=== PATIENT | female | born 1950 | race Caucasian/White ===

== ENCOUNTER 2024-01-18 15:18 | Inpatient (IN) | payer OTHER, MEDICARE ==
[2024-01-18] MEDS ORDERED: NOREPINEPHRINE 0.9 % NACL 8 MG/250 ML BAG IVPB ONE (15:34)
[2024-01-18 15:45] LABS: VENOUS BASE EXCESS -9.3 mmol/L (-2-2); VENOUS O2 SATURATION 94.6 % (70-80); VENOUS PCO2 56.2 mmHg (38-52)
[2024-01-18 15:48] LABS: VENOUS PH 7.159 (7.310-7.410)
[2024-01-18 15:51] LABS: HEMATOCRIT 32.5 % (32.4-45.2); HEMOGLOBIN 9.9 GM/dL (10.7-15.3); MCH 23.5 pg (25.7-33.7); MCHC 30.4 g/dl (32.0-36.0); MEAN CELL VOLUME 77.4 fl (80-96); MEAN PLT VOLUME 9.5 fl (7.5-11.1); PLATELET COUNT 247 10^3/uL (134-434); RDW 16.5 % (11.6-15.6); WHITE BLOOD COUNT 22.4 K/mm3 (4.0-10.0)
[2024-01-18] MEDS: NOREPINEPHRINE BITARTRATE 8,000 MCG in DEXTROSE 5%-WATER - 492 ML IV SCH (16:02)
[2024-01-18 16:04] LABS: CHLORIDE 102 mmol/L (98-107); SODIUM 138 mmol/L (136-145)
[2024-01-18 16:05] LABS: CALCIUM 8.9 mg/dL (8.5-10.1)
[2024-01-18 16:06] LABS: ALBUMIN 2.8 g/dl (3.4-5.0); CO2 21 mmol/L (21-32); GLUCOSE,RANDOM 331 mg/dL (74-106); MAGNESIUM 2.5 mg/dL (1.8-2.4)
[2024-01-18 16:09] LABS: CREATININE 3.7 mg/dL (0.55-1.3); SGOT/AST 86 U/L (15-37); SGPT/ALT 55 U/L (13-61)
[2024-01-18 16:11] LABS: ALK PHOS 90 U/L (45-117); BILIRUBIN,TOTAL 0.6 mg/dL (0.2-1); TOT PROT 5.8 g/dl (6.4-8.2)
[2024-01-18 16:14] LABS: ANION GAP 15 mmol/L (4-13); N-TERMINAL BNP 5930.9 pg/ml (5-450); POTASSIUM 8.1 mmol/L (3.5-5.1)
[2024-01-18 16:15] LABS: LACTIC ACID 9.5 mmol/L (0.4-2.0)
[2024-01-18] MEDS ORDERED: INSULIN REGULAR HUMAN 100 UNITS/ML *VIAL ONE (16:25)
[2024-01-18] MEDS ORDERED: ALBUTEROL SO4 2.5/IPRATROPIUM 0.5 INH SOL 3 ML VIAL.NEB. NEB ONE ×2 (16:25→18:45)
[2024-01-18 16:45] LABS: ACTIVATED PTT 28.7 SECONDS (25.2-36.5); INR 1.05 (0.83-1.09); PROTHROMBIN TIME (PATIENT) 11.9 SEC (9.7-13.0)
[2024-01-18] MEDS ORDERED: INSULIN REGULAR HUMAN 100 UNITS/ML *VIAL IVPUSH ONE (16:53)
[2024-01-18 17:13] LABS: ANISOCYTOSIS 2+; MACROCYTOSIS 0
[2024-01-18] MEDS: ALBUTEROL SO4 2.5/IPRATROPIUM 0.5 INH SOL 3 ML VIAL.NEB. NEB SCH ×3 (17:14→20:49)
[2024-01-18] MEDS ORDERED: PIPERACILLIN/TAZOB 4.5 GM 4.5 GM/100 ML BAG IVPB ONE (17:18)
[2024-01-18] MEDS ORDERED: VANCOMYCIN 1 GRAM (PRE-DOCKED) 1,000 MG/250 ML BAG IVPB ONE (17:19)
[2024-01-18] MEDS: SODIUM CHLORIDE 0.9% 1000 ML INFUS.BAG IV ONE (17:25)
[2024-01-18 17:45] LABS: CHLORIDE 102 mmol/L (98-107); SODIUM 139 mmol/L (136-145)
[2024-01-18 17:47] LABS: ALBUMIN 2.8 g/dl (3.4-5.0); BLOOD UREA NITROGEN 78.6 mg/dL (7-18); CALCIUM 9.8 mg/dL (8.5-10.1); CO2 25 mmol/L (21-32); GLUCOSE,RANDOM 327 mg/dL (74-106)
[2024-01-18 17:50] LABS: SGOT/AST 208 U/L (15-37); SGPT/ALT 119 U/L (13-61)
[2024-01-18 17:51] LABS: BILIRUBIN,TOTAL 0.7 mg/dL (0.2-1); CREATININE 3.8 mg/dL (0.55-1.3); TOT PROT 5.7 g/dl (6.4-8.2)
[2024-01-18 17:54] LABS: ALK PHOS 101 U/L (45-117)
[2024-01-18] MEDS: methylPREDNISolone NA SUCC 40 MG/1 ML VIAL IVPUSH SCH (18:00)
[2024-01-18] MEDS: PIPERACILLIN/TAZOB 4.5 GM 4.5 GM in DEXTROSE 5%-WATER 100 ML IVPB ONE (18:06)
[2024-01-18] MEDS: VANCOMYCIN 1,000 MG in DEXTROSE 5%-WATER - 250 ML IVPB ONE (18:06)
[2024-01-18 18:08] LABS: ANION GAP 12 mmol/L (4-13); POTASSIUM 8.9 mmol/L (3.5-5.1)
[2024-01-18] MEDS: SODIUM CHLORIDE 1,000 ML IV SCH (18:08)
[2024-01-18] MEDS: CALCIUM GLUCONATE 10% - 1,000 MG/10 ML VIAL IVPUSH ONE ×2 (18:08→18:42)
[2024-01-18] MEDS: INSULIN REGULAR HUMAN 100 UNITS/ML *VIAL IVPUSH ONE ×3 (18:08→22:31)
[2024-01-18] MEDS: LACTATED RINGERS SOLUTION 1000 ML INFUS.BAG IV ONE (18:42)
[2024-01-18] MEDS ORDERED: PANTOPRAZOLE SODIUM 40 MG/100 ML BAG IVPB ONE (19:14)
[2024-01-18] MEDS: PANTOPRAZOLE SODIUM 40 MG VIAL IVPUSH SCH (19:25)
[2024-01-18] MEDS: SODIUM BICARBONATE 8.4% - 75 MEQ in SODIUM CHLORIDE 0.45% 950 ML IV ONE (19:44)
[2024-01-18 19:48] LABS: EPI CELLS >36 /uL (0-25.1); HYALINE CASTS 177 /uL (0-3.1); PH,URINE 5.5 (5.0-8.0); URINE APPEARANCE TURBID; URINE BACTERIA 6109 /uL (0-1359); URINE BILIRUBIN NEGATIVE (NEGATIVE); URINE COLOR YELLOW; URINE GLUCOSE (UA) TRACE (NEGATIVE); URINE KETONE NEGATIVE (NEGATIVE); URINE LEUK ESTERASE 3+ (NEGATIVE); URINE NITRITE POSITIVE (NEGATIVE); URINE PROTEIN 2+ (NEGATIVE); URINE UROBILINOGEN 0.2 mg/dL (0.2-1.0); URINE WBC 39799 /uL (0-25.8)
[2024-01-18 20:32] LABS: URINE RBC NONE SEEN /uL (0-23.9); YEAST NONE SEEN (NEGATIVE)
[2024-01-18] MEDS: CHLORHEXIDINE GLUCONATE 4% CLEANSER FOR DECOLONIZATION TP SCH (21:22)
[2024-01-18] MEDS: HEPARIN NA (PORCINE) 5,000 UNITS/ML 1ML VIAL SQ SCH (22:20)
[2024-01-18] MEDS: MUPIROCIN 2% TOPICAL OINTMENT FOR DECOLONIZATION NS SCH (22:20)
[2024-01-18] MEDS: INSULIN ASPART SLIDING SCALE (NOVOLOG) 1 VIAL SQ SCH (22:21)
[2024-01-18] MEDS: PIPERACILLIN/TAZOB 3.375 GM 3.375 GM in DEXTROSE 5%-WATER - 50 ML IVPB SCH (22:21)
[2024-01-18] MEDS ORDERED: INSULIN ASPART SLIDING SCALE (NOVOLOG) 1 VIAL SQ ONE (22:26)
[2024-01-18] MEDS: SODIUM BICARBONATE 8.4% 50 MEQ/50 ML DISP.SYRIN IVPUSH ONE (22:27)
[2024-01-18] MEDS ORDERED: DEXTROSE 50%-WATER 25 GM/50 ML DISP.SYRIN ONE (22:29)
[2024-01-18] MEDS: DEXTROSE 50%-WATER - 25 GM/50 ML VIAL IVPUSH ONE (22:37)
[2024-01-18 23:09] LABS: HEMATOCRIT 32.2 % (32.4-45.2); HEMOGLOBIN 10.1 GM/dL (10.7-15.3); MCH 23.6 pg (25.7-33.7); MCHC 31.4 g/dl (32.0-36.0); MEAN CELL VOLUME 75.2 fl (80-96); MEAN PLT VOLUME 9.1 fl (7.5-11.1); PLATELET COUNT 260 10^3/uL (134-434); RBC 4.28 M/mm3 (3.60-5.2); RDW 16.4 % (11.6-15.6); WHITE BLOOD COUNT 23.7 K/mm3 (4.0-10.0)
[2024-01-18 23:13] LABS: ARTERIAL BLD GAS O2 SATURATION 97.4 % (95-98); ARTERIAL BLOOD GAS BASE EXCESS -1.3 mmol/L (-2-2); ARTERIAL BLOOD GAS PO2 102.3 mmHg (80-100); ARTERIAL BLOOD GAS pH 7.346 (7.350-7.450)
[2024-01-18 23:16] LABS: INR 1.16 (0.83-1.09)
[2024-01-18 23:17] LABS: VENT RATE 14
[2024-01-18 23:31] LABS: ALBUMIN 2.7 g/dl (3.4-5.0)
[2024-01-18 23:33] LABS: BILIRUBIN,DIRECT 0.2 mg/dL (0.0-0.2)
[2024-01-18 23:35] LABS: BILIRUBIN,TOTAL 0.6 mg/dL (0.2-1); TOT PROT 5.4 g/dl (6.4-8.2)
[2024-01-19 00:37] LABS: CHLORIDE 103 mmol/L (98-107); SODIUM 139 mmol/L (136-145)
[2024-01-19 00:39] LABS: CALCIUM 9.1 mg/dL (8.5-10.1); CO2 27 mmol/L (21-32)
[2024-01-19 00:40] LABS: BLOOD UREA NITROGEN 83.4 mg/dL (7-18)
[2024-01-19 00:43] LABS: CREATININE 3.6 mg/dL (0.55-1.3)
[2024-01-19 00:46] LABS: ANION GAP 9 mmol/L (4-13); GLUCOSE,RANDOM 413 mg/dL (74-106); POTASSIUM 7.2 mmol/L (3.5-5.1)
[2024-01-19 06:33] LABS: ARTERIAL BLD GAS O2 SATURATION 97.9 % (95-98); ARTERIAL BLOOD GAS BASE EXCESS 3.7 mmol/L (-2-2); ARTERIAL BLOOD GAS PO2 104.9 mmHg (80-100); ARTERIAL BLOOD GAS pH 7.429 (7.350-7.450)
[2024-01-19 06:50] LABS: HEMATOCRIT 33.6 % (32.4-45.2); HEMOGLOBIN 10.4 GM/dL (10.7-15.3); MCH 23.3 pg (25.7-33.7); MCHC 31.1 g/dl (32.0-36.0); MEAN PLT VOLUME 9.1 fl (7.5-11.1); PLATELET COUNT 235 10^3/uL (134-434); RBC 4.48 M/mm3 (3.60-5.2); RDW 15.9 % (11.6-15.6); WHITE BLOOD COUNT 26.2 K/mm3 (4.0-10.0)
[2024-01-19 06:53] LABS: CHLORIDE 104 mmol/L (98-107); SODIUM 140 mmol/L (136-145)
[2024-01-19 06:57] LABS: ALBUMIN 2.7 g/dl (3.4-5.0); CO2 28 mmol/L (21-32); GLUCOSE,RANDOM 309 mg/dL (74-106); MAGNESIUM 2.2 mg/dL (1.8-2.4)
[2024-01-19 07:00] LABS: CREATININE 3.5 mg/dL (0.55-1.3); PHOSPHOROUS 5.3 mg/dL (2.5-4.9); SGOT/AST 153 U/L (15-37); SGPT/ALT 107 U/L (13-61)
[2024-01-19 07:03] LABS: ALK PHOS 93 U/L (45-117); BILIRUBIN,TOTAL 0.5 mg/dL (0.2-1); TOT PROT 5.5 g/dl (6.4-8.2)
[2024-01-19 07:11] LABS: ANION GAP 8 mmol/L (4-13); POTASSIUM 7.2 mmol/L (3.5-5.1)
[2024-01-19] MEDS: INSULIN REGULAR HUMAN 100 UNITS/ML *VIAL IVPUSH ONE ×2 (07:56→21:55)
[2024-01-19] MEDS: SODIUM CHLORIDE 1,000 ML IV SCH (08:33)
[2024-01-19] MEDS: INSULIN REGULAR 100 UNITS in SODIUM CHLORIDE 99 ML IVPB SCH ×2 (08:56→09:40)
[2024-01-19] MEDS: SODIUM ZIRCONIUM CYCLOSILICATE (LOKELMA) 5 GM PACKET PO SCH ×2 (09:09→21:55)
[2024-01-19 09:19] LABS: ANISOCYTOSIS 2+; MACROCYTOSIS 0
[2024-01-19 09:21] LABS: PLATELET ESTIMATE ADEQUATE
[2024-01-19 09:23] LABS: LACTIC ACID 3.9 mmol/L (0.4-2.0)
[2024-01-19] MEDS: METOPROLOL TARTRATE 5 MG/5 ML VIAL IVPUSH PRN ×2 (12:11→17:12)
[2024-01-19] MEDS: PIPERACILLIN/TAZOB 2.25 GM 2.25 GM in DEXTROSE 5%-WATER - 50 ML IVPB SCH (13:31)
[2024-01-19] MEDS: METOPROLOL TARTRATE 5 MG/5 ML VIAL IVPUSH ONE (14:35)
[2024-01-19 14:59] LABS: POTASSIUM 6.5 mmol/L (3.5-5.1)
[2024-01-19 15:08] LABS: LACTIC ACID 2.6 mmol/L (0.4-2.0)
[2024-01-19 21:30] LABS: POTASSIUM 6.8 mmol/L (3.5-5.1)
[2024-01-19] MEDS: DEXTROSE 50%-WATER 25 GM/50 ML DISP.SYRIN IVPUSH ONE (21:55)
[2024-01-20] MEDS ORDERED: INSULIN ASPART SLIDING SCALE (NOVOLOG) 1 VIAL SQ ONE (03:04)
[2024-01-20] MEDS: PIPERACILLIN/TAZOB 3.375 GM 3.375 GM in DEXTROSE 5%-WATER - 50 ML IVPB SCH (05:03)
[2024-01-20 07:18] LABS: HEMATOCRIT 33.4 % (32.4-45.2); HEMOGLOBIN 10.5 GM/dL (10.7-15.3); MCH 23.4 pg (25.7-33.7); MCHC 31.4 g/dl (32.0-36.0); MEAN CELL VOLUME 74.7 fl (80-96); PLATELET COUNT 244 10^3/uL (134-434); RBC 4.47 M/mm3 (3.60-5.2); RDW 15.9 % (11.6-15.6)
[2024-01-20 07:29] LABS: CHLORIDE 104 mmol/L (98-107); SODIUM 141 mmol/L (136-145)
[2024-01-20 07:32] LABS: CALCIUM 8.5 mg/dL (8.5-10.1)
[2024-01-20 07:33] LABS: ALBUMIN 2.6 g/dl (3.4-5.0); BLOOD UREA NITROGEN 79.4 mg/dL (7-18); CO2 26 mmol/L (21-32); GLUCOSE,RANDOM 242 mg/dL (74-106)
[2024-01-20 07:36] LABS: CREATININE 3.6 mg/dL (0.55-1.3); SGOT/AST 159 U/L (15-37); SGPT/ALT 83 U/L (13-61)
[2024-01-20 07:37] LABS: BILIRUBIN,TOTAL 0.4 mg/dL (0.2-1); TOT PROT 5.4 g/dl (6.4-8.2)
[2024-01-20 07:38] LABS: ALK PHOS 86 U/L (45-117)
[2024-01-20 07:39] LABS: PHOSPHOROUS 5.4 mg/dL (2.5-4.9)
[2024-01-20 07:40] LABS: ANION GAP 11 mmol/L (4-13); POTASSIUM 6.2 mmol/L (3.5-5.1)
[2024-01-20 08:00] LABS: WHITE BLOOD COUNT 32.2 K/mm3 (4.0-10.0)
[2024-01-20] MEDS: DEXTROSE 50%-WATER 25 GM/50 ML DISP.SYRIN IVPUSH ONE (08:51)
[2024-01-20] MEDS: INSULIN REGULAR HUMAN 100 UNITS/ML *VIAL IVPUSH ONE (08:52)
[2024-01-20 09:07] LABS: ANISOCYTOSIS 0; MACROCYTOSIS 0
[2024-01-20] MEDS: METOPROLOL TARTRATE 25 MG TABLET (FP) PO SCH (09:12)
[2024-01-20] MEDS: POLYETHYLENE GLYCOL (HEALTHYLAX) 3350 17 GM PACKET PO SCH (09:13)
[2024-01-20] MEDS: INSULIN ASPART SLIDING SCALE (NOVOLOG) 1 VIAL SQ SCH (12:15)
[2024-01-20] MEDS ORDERED: INSULIN REGULAR 100 UNITS in SODIUM CHLORIDE 99 ML IVPB SCH (12:30)
[2024-01-20] MEDS: SODIUM CHLORIDE 0.45% 1,000 ML IV SCH (15:35)
[2024-01-20 20:16] LABS: POTASSIUM 5.2 mmol/L (3.5-5.1)
[2024-01-20 20:17] LABS: CALCIUM 8.6 mg/dL (8.5-10.1)
[2024-01-20 20:18] LABS: BLOOD UREA NITROGEN 82.7 mg/dL (7-18)
[2024-01-20 20:21] LABS: CREATININE 3.8 mg/dL (0.55-1.3)
[2024-01-20] MEDS: SENNOSIDES 8.6MG TABLET (FP) PO SCH (21:18)
[2024-01-21 08:05] LABS: BASO % 0.1 % (0-2.0); HEMATOCRIT 29.5 % (32.4-45.2); HEMOGLOBIN 9.6 GM/dL (10.7-15.3); LYMPH % 1.4 % (8-40); MCH 23.7 pg (25.7-33.7); MCHC 32.5 g/dl (32.0-36.0); MEAN CELL VOLUME 73.1 fl (80-96); MEAN PLT VOLUME 8.7 fl (7.5-11.1); MONO % 4.6 % (3.8-10.2); NEUT % 93.9 % (42.8-82.8); PLATELET COUNT 188 10^3/uL (134-434); RBC 4.03 M/mm3 (3.60-5.2); RDW 16.1 % (11.6-15.6); WHITE BLOOD COUNT 28.2 K/mm3 (4.0-10.0)
[2024-01-21 08:15] LABS: ALBUMIN 2.3 g/dl (3.4-5.0); BLOOD UREA NITROGEN 80.9 mg/dL (7-18); CALCIUM 8.1 mg/dL (8.5-10.1); MAGNESIUM 1.9 mg/dL (1.8-2.4)
[2024-01-21 08:18] LABS: CREATININE 3.5 mg/dL (0.55-1.3); PHOSPHOROUS 5.2 mg/dL (2.5-4.9)
[2024-01-21 08:19] LABS: BILIRUBIN,TOTAL 0.3 mg/dL (0.2-1)
[2024-01-21 08:47] LABS: ANISOCYTOSIS 2+; MACROCYTOSIS 0; TEAR DROP CELLS 1+
[2024-01-21] MEDS: NOREPINEPHRINE BITARTRATE/D5W 8 MG/250 ML BAG IVPB SCH (11:32)
[2024-01-21] MEDS: ALBUMIN HUMAN 25% 100 ML VIAL IV ONE (12:14)
[2024-01-22 12:01] LABS: ARTERIAL BLD GAS O2 SATURATION 97.3 % (95-98); ARTERIAL BLOOD GAS BASE EXCESS -0.6 mmol/L (-2-2); ARTERIAL BLOOD GAS PO2 97.6 mmHg (80-100); ARTERIAL BLOOD GAS pH 7.379 (7.350-7.450)
[2024-01-22 12:06] LABS: VENT MODE A/C; VENT RATE 14
[2024-01-22 12:12] LABS: HEMATOCRIT 27.3 % (32.4-45.2); HEMOGLOBIN 8.7 GM/dL (10.7-15.3); MCH 23.5 pg (25.7-33.7); MCHC 31.8 g/dl (32.0-36.0); MEAN CELL VOLUME 73.8 fl (80-96); MEAN PLT VOLUME 8.3 fl (7.5-11.1); PLATELET COUNT 161 10^3/uL (134-434); RDW 16.4 % (11.6-15.6); WHITE BLOOD COUNT 25.3 K/mm3 (4.0-10.0)
[2024-01-22 12:29] LABS: POTASSIUM 4.3 mmol/L (3.5-5.1)
[2024-01-22 12:31] LABS: ALBUMIN 2.3 g/dl (3.4-5.0); BLOOD UREA NITROGEN 77.8 mg/dL (7-18); CALCIUM 8.3 mg/dL (8.5-10.1); MAGNESIUM 2.1 mg/dL (1.8-2.4)
[2024-01-22 12:34] LABS: CREATININE 3.4 mg/dL (0.55-1.3)
[2024-01-22 12:35] LABS: PHOSPHOROUS 5.5 mg/dL (2.5-4.9)
[2024-01-22 12:36] LABS: BILIRUBIN,TOTAL 0.3 mg/dL (0.2-1); TOT PROT 4.9 g/dl (6.4-8.2)
[2024-01-22 12:54] LABS: ANISOCYTOSIS 1+; MACROCYTOSIS 0
[2024-01-23] MEDS: INSULIN ASPART SLIDING SCALE (NOVOLOG) 1 VIAL SQ SCH ×2 (06:35→11:17)
[2024-01-23 07:21] LABS: HEMATOCRIT 30.6 % (32.4-45.2); HEMOGLOBIN 9.2 GM/dL (10.7-15.3); MCH 23.1 pg (25.7-33.7); MCHC 30.2 g/dl (32.0-36.0); MEAN CELL VOLUME 76.5 fl (80-96); MEAN PLT VOLUME 8.5 fl (7.5-11.1); PLATELET COUNT 237 10^3/uL (134-434); RDW 16.9 % (11.6-15.6)
[2024-01-23 07:32] LABS: WHITE BLOOD COUNT 35.4 K/mm3 (4.0-10.0)
[2024-01-23 07:57] LABS: POTASSIUM 4.3 mmol/L (3.5-5.1)
[2024-01-23 07:59] LABS: CALCIUM 8.7 mg/dL (8.5-10.1); MAGNESIUM 2.2 mg/dL (1.8-2.4)
[2024-01-23 08:03] LABS: CREATININE 3.3 mg/dL (0.55-1.3); PHOSPHOROUS 6.3 mg/dL (2.5-4.9)
[2024-01-23 11:04] LABS: ARTERIAL BLD GAS O2 SATURATION 99.5 % (95-98); ARTERIAL BLOOD GAS BASE EXCESS -7.7 mmol/L (-2-2); ARTERIAL BLOOD GAS PO2 272.4 mmHg (80-100)
[2024-01-23 11:06] LABS: ALLENS TEST POSITIVE
[2024-01-23 11:07] LABS: VENT MODE A/C
[2024-01-23 11:08] LABS: VENT RATE 14
[2024-01-23] MEDS: INSULIN (NOVOLOG) ASPART 100 UNITS/ML 10ML VIAL SQ SCH (11:18)
[2024-01-23 13:12] LABS: ARTERIAL BLD GAS O2 SATURATION 99.1 % (95-98); ARTERIAL BLOOD GAS BASE EXCESS -7.4 mmol/L (-2-2); ARTERIAL BLOOD GAS pH 7.286 (7.350-7.450)
[2024-01-23 13:14] LABS: VENT RATE 20
[2024-01-23] MEDS ORDERED: METOPROLOL TARTRATE 5 MG/5 ML VIAL ONE (15:28)
[2024-01-23] MEDS ORDERED: ADENOSINE 6 MG/2 ML VIAL IVPUSH ONE ×2 (15:30→15:36)
[2024-01-23 15:43] VITALS: BMI 43.7
[2024-01-23] MEDS: SODIUM BICARBONATE 8.4% - 150 MEQ in DEXTROSE 5%-WATER - 950 ML IV SCH (15:43)
[2024-01-23] MEDS: ADENOSINE 6 MG/2 ML VIAL IVPUSH ONE (16:10)
[2024-01-23] MEDS ORDERED: AMIODARONE IN DEXTROSE,ISO-OSM 150 MG/100 ML BAG ONE (18:44)
[2024-01-23] MEDS ORDERED: AMIODARONE HCL 150 MG/3 ML VIAL IVPUSH ONE (18:50)
[2024-01-23] MEDS: AMIODARONE HCL INJECTION 150 MG in DEXTROSE 5%-WATER - 100 ML IVPB ONE (19:02)
[2024-01-23] MEDS: AMIODARONE IN DEXTROSE,ISO-OSM 360 MG/200 ML BAG IV SCH (19:15)
[2024-01-23] MEDS ORDERED: VASopressin 20 UNITS/ML VIAL IV ONE (19:16)
[2024-01-23] MEDS: VASopressin 40 UNITS/100 ML BAG IV SCH (19:30)
[2024-01-23 20:10] VITALS: RESP 20
[2024-01-23] MEDS: INSULIN (LEVEMIR) 100 UNITS/ML UNITS SQ SCH (21:33)
[2024-01-24] MEDS: AMIODARONE IN DEXTROSE,ISO-OSM 360 MG/200 ML BAG IV SCH (00:26)
[2024-01-24 06:48] LABS: ARTERIAL BLD GAS O2 SATURATION 93.7 % (95-98); ARTERIAL BLOOD GAS BASE EXCESS -8.2 mmol/L (-2-2); ARTERIAL BLOOD GAS PO2 79.6 mmHg (80-100); ARTERIAL BLOOD GAS pH 7.241 (7.350-7.450)
[2024-01-24 07:07] LABS: VENT MODE A/C; VENT RATE 20
[2024-01-24 07:32] LABS: HEMATOCRIT 29.7 % (32.4-45.2); HEMOGLOBIN 9.1 GM/dL (10.7-15.3); MCH 23.6 pg (25.7-33.7); MCHC 30.5 g/dl (32.0-36.0); MEAN CELL VOLUME 77.4 fl (80-96); MEAN PLT VOLUME 8.9 fl (7.5-11.1); PLATELET COUNT 225 10^3/uL (134-434); RBC 3.84 M/mm3 (3.60-5.2); RDW 16.9 % (11.6-15.6)
[2024-01-24 07:49] LABS: CHLORIDE 98 mmol/L (98-107); POTASSIUM 4.2 mmol/L (3.5-5.1); SODIUM 136 mmol/L (136-145)
[2024-01-24 07:51] LABS: WHITE BLOOD COUNT 32.8 K/mm3 (4.0-10.0)
[2024-01-24 07:52] LABS: ALBUMIN 2.1 g/dl (3.4-5.0)
[2024-01-24 07:53] LABS: ANION GAP 19 mmol/L (4-13); BLOOD UREA NITROGEN 82.2 mg/dL (7-18); CO2 20 mmol/L (21-32); MAGNESIUM 2.2 mg/dL (1.8-2.4)
[2024-01-24 07:55] LABS: CREATININE 3.6 mg/dL (0.55-1.3); SGOT/AST 40 U/L (15-37); SGPT/ALT 33 U/L (13-61)
[2024-01-24 07:56] LABS: PHOSPHOROUS 6.9 mg/dL (2.5-4.9)
[2024-01-24 07:57] LABS: BILIRUBIN,TOTAL 0.4 mg/dL (0.2-1); TOT PROT 5.1 g/dl (6.4-8.2)
[2024-01-24 07:59] LABS: ALK PHOS 102 U/L (45-117); GLUCOSE,RANDOM 469 mg/dL (74-106)
[2024-01-24] MEDS: INSULIN REGULAR HUMAN 100 UNITS/ML *VIAL IVPUSH ONE (08:02)
[2024-01-24] MEDS: INSULIN REGULAR 100 UNITS in SODIUM CHLORIDE 99 ML IVPB SCH (08:03)
[2024-01-24 08:32] VITALS: TEMP 97.2
[2024-01-24] MEDS: morphine SULFATE 4 MG/ML VIAL IVPUSH ONE (09:03)
[2024-01-24] MEDS: MORPHINE SULFATE/0.9% NACL/PF 100 MG/100 ML BAG IVPB SCH (09:04)
[2024-01-24 10:08] VITALS: BP 65/36; PULSE 98
== END 2024-01-24 12:00 | disposition expired | DRG 870 ==
LOC: JER 15:18 → JERBED 16:03 → JICU 20:37
PROVIDERS: ADMIT Internal Medicine Pulmonary Disease; ATTEND Internal Medicine Pulmonary Disease
PROC: 5A1955Z Respiratory Ventilation, Greater than 96 Consecutive Hours (ICD-10-PCS; principal; 2024-01-18)
PROC: 06HM33Z Insertion of Infusion Device into Right Femoral Vein, Percutaneous Approach (ICD-10-PCS; 2024-01-18)
PROC: 4A133B1 Monitoring of Arterial Pressure, Peripheral, Percutaneous Approach (ICD-10-PCS; 2024-01-19)
PROC: 4A133J1 Monitoring of Arterial Pulse, Peripheral, Percutaneous Approach (ICD-10-PCS; 2024-01-19)
DX: A41.89 Other specified sepsis (principal); J69.0 Pneumonitis due to inhalation of food and vomit; J96.22 Acute and chronic respiratory failure with hypercapnia; J96.21 Acute and chronic respiratory failure with hypoxia; R65.21 Severe sepsis with septic shock; Z68.42 Body mass index [BMI] 45.0-49.9, adult; E87.20 Acidosis, unspecified; N39.0 Urinary tract infection, site not specified; G93.1 Anoxic brain damage, not elsewhere classified; I46.9 Cardiac arrest, cause unspecified; D72.829 Elevated white blood cell count, unspecified; E78.5 Hyperlipidemia, unspecified; E87.5 Hyperkalemia; I10 Essential (primary) hypertension; E11.9 Type 2 diabetes mellitus without complications; J44.9 Chronic obstructive pulmonary disease, unspecified; E66.01 Morbid (severe) obesity due to excess calories; B96.20 Unspecified Escherichia coli [E. coli] as the cause of diseases classified elsewhere; G47.33 Obstructive sleep apnea (adult) (pediatric); Z85.3 Personal history of malignant neoplasm of breast; Z99.81 Dependence on supplemental oxygen
CPT/HCPCS: 0241U-QW; 36415; 36600; 70450-TC; 71045-TC-FY; 71250-TC; 74176-TC; 80048; 80053; 80076; 81003; 82803; 82962; 83605; 83690; 83735; 83880; 84100; 84132; 84443; 84484; 85025; 85027; 85610; 85730; 86850; 86900; 86901; 87040; 87086; 87186; 93005; 93010; 93306-TC; 93308; 94002; 94640; 99291; J1644; J3490